=== PATIENT | male | born 1985 | race Caucasian/White ===

== ENCOUNTER 2022-03-25 16:10 | Emergency (ER) | payer BC ==
[~2022-03-25] VITALS: Ht 175.3 cm; Wt 72.6 kg
--- NOTE | 2022-03-25 16:18 | NUR ---
BIB [place] FROM [facility],WITNESSED SEIZURE,BLOOD SUGAR 113,POST ICTAL ON SCENE. PT ARRIVED A&OX4. ATTACHED TO MONITOR, VITALS ARE WITHIN NORMAL LIMITS. NO ORAL TRAUMA NOTED. SEIZURE PRECAUTIONS APPLIED. AWAITING MD ORDERS.
[2022-03-25] MEDS ORDERED: LamoTRIgine 100 MG TABLET PO SCH (17:00)
[2022-03-25] MEDS ORDERED: LamoTRIgine 100 MG TABLET PO ONE (17:00)
--- NOTE | 2022-03-25 17:25 | NUR ---
Patient discharged to home in stable condition. Written and verbal after care instructions given. Patient verbalizes understanding of instruction.IV removed. Catheter intact and site benign. Pressure and 4x4 applied to site. No bleeding noted.
[2022-03-25 17:26] VITALS: BP 124/66
== END 2022-03-25 17:28 | disposition home or self-care (01) ==
LOC: ER 16:12
DX: G40.909 Epilepsy, unspecified, not intractable, without status epilepticus (principal)